=== PATIENT | female | born 1985 | race American Indian/Alaskan Native ===

== ENCOUNTER 2017-12-10 22:08 | Inpatient (IN) | payer BC ==
[2017-12-10] MEDS ORDERED: Lactated Ringer's 1,000 ML IV ONE (22:23)
[2017-12-10 22:26] VITALS: BMI 31.2
[2017-12-10 23:02] LABS: BASO # 0.1 K/uL (0.0-0.2); BASO % 0.6 % (0.0-2.0); EOS # 0.1 K/uL (0.0-0.7); EOS % 0.9 % (0.0-4.0); HEMOGLOBIN 10.3 g/dL (11.0-16.0); LYMPH # 1.4 K/uL (1.0-4.3); LYMPH % 15.1 % (20.0-40.0); MEAN CORPUSCULAR HEMOGLOBIN 23.7 pg (27.0-31.0); MEAN CORPUSCULAR HGB CONC 33.4 g/dL (33.0-37.0); MEAN PLATELET VOLUME 9.8 fL (7.2-11.7); MONO # 0.5 K/uL (0.0-0.8); MONO % 5.5 % (0.0-10.0); NEUT # 7.2 K/uL (1.8-7.0); NEUT % 77.9 % (50.0-75.0); NRBC % 0.1 % (0.0-2.0); RBC 4.32 Mil/uL (3.80-5.20); RED CELL DISTRIBUTION WIDTH 18.1 % (11.5-14.5); WHITE BLOOD COUNT 9.2 K/uL (4.8-10.8)
[2017-12-10] MEDS: Lactated Ringer's 1,000 ML IV SCH (23:06)
[2017-12-10 23:12] LABS: URINE BACTERIA OCC (<OCC); URINE BILIRUBIN NEGATIVE (NEGATIVE); URINE BLOOD NEGATIVE (NEGATIVE); URINE CLARITY Clear (Clear); URINE COLOR Straw (YELLOW); URINE GLUCOSE (UA) NORMAL (Normal); URINE LEUKOCYTE ESTERASE NEG Leu/uL (Negative); URINE PROTEIN NEGATIVE (NEGATIVE); URINE UROBILINOGEN NORMAL mg/dL (0.2-1.0)
[2017-12-10 23:18] LABS: ALB/GLOB RATIO 1.1 (1.0-2.1); ALBUMIN 3.9 g/dL (3.5-5.0); ALT/SGPT 16 U/L (9-52); AST/SGOT 39 U/L (14-36); BLOOD UREA NITROGEN 5 mg/dL (7-17); CALCIUM 9.1 mg/dl (8.6-10.4); GFR NON-AFRICAN AMERICAN > 60
--- NOTE | 2017-12-10 23:48 | OBADHP ---
Datetime: 12/10/2017 22:27 IP Chief Complaint Other: Abdominal tightening IP Adm Impression Other: Prolonged latent phase IP Admit Plan Other: Cervical ripening Admit Comment, IP Provider: 32 y.o. , LMP 03/07/17, LAI 12/12/17, EGA 39w 5d with occ abdominal tightness, stronger since last night. (+) AFM; denies LOF, VB. care: Dr. 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 Deines STIs PMH: denies PSH: 2007, wisdom teeth extraction x 4 (GA) NKDA Meds: PNV Soc Hx: denies tobacco, illicit drug or EtOH use. 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 Fam Hx: Mother alive 53 - hypothyroid. Father alive 69 - DM. Pat uncle - bladder CA P.E.: as above. Petite, in NAD. Awake, alert, oriented to time, person and place. 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 present Assessment: 32 y.o. P0, 39w 5d, prolonged latent phase of labor. GBS (-). Category 1 tracing. D/W Dr. Gutiérrez - admit for delivery; for cervical ripening. This was discussed with patient, who expresse d an understanding and agrees. No questions offered. Patient is clinically stable. Plan: 1) Admit 2) NPO 3) Admission labs 4) Continuous EFM 5) Cervidil 6) pain meds, upon request 7) Anticipate vaginal delivery -as per Dr. Gutiérrez Addendum: 2305 hours - cervidil placed in posterior vaginal vault. Pelvic Type - PN: Adequate Extremities - PN: Normal Abdomen - PN: Normal Back - PN: Normal Breast - PN: Normal Lungs - PN: Normal Heart - PN: Normal Thyroid - PN: Not Done Neurologic - PN: Normal HEENT - PN: Normal General - PN: Normal Weight - Estimated: 3065 Presentation-Admit: Vertex FHR - Baseline A Provider: 125 Membranes, Provider: Intact Contraction Comments Provider: irregular Comments, ACOG Physical Exam: Abdomen: Gravid. Soft. Non tender All other systems reviewed and are negative Gestation - Est Wks by US: 39w 5d IP Hx Assessment: The History has been Reviewed and is Current Vital Signs Provider: Reviewed IP Chief Complaint: Other NICHD Variability Prov Fetus A: Moderate 6-25bpm NICHD Accel Fetus A IP Provider: 15X15 FHR Category Provider Fetus A: Category I NICHD Decel Fetus A IP Provider: None Dilatation, Provider: 3 Effacement, Provider: 40 Station, Provider: -2 Genitourinary Exam: Normal DTRs - PN: Not Done EGA AdmitDate IP: 39.5 IP Adm Impression: Term, intrauterine ; No Active Labor IP Admit Plan: Admit to unit; Initiate labor protocol
[2017-12-11] MEDS ORDERED: Bupivacaine HCl/FentaNYL Cit 100 ML EPI ONE (04:33)
[2017-12-11] MEDS ORDERED: Oxytocin 30 UNIT 30 UNITS/500 ML BAG IV SCH (08:30)
[2017-12-11] MEDS: Lactated Ringer's 1,000 ML IV SCH (09:15)
--- NOTE | 2017-12-11 09:21 | OBPN ---
Datetime: 12/11/2017 09:17 IP Progress Impression: Normal progression of labor IP Progress Plan: Continue present management Membranes, Provider: Ruptured FHR - Baseline A Provider: 135 Gestation - Est Wks by US: 39.6 Presentation-Admit: Vertex IP Progress Note Comment: pt seen adn examiend reprots pain better contorlled afer epiudral +FM VSS EFM: Cat I TOCO: q 2-3 min VE: /-2 VTX AROM clear A/P @ 39.6 wks GA in active labor cont current mangmante Vital Signs Provider: Reviewed; Within Normal Limits FHR Category Provider Fetus A: Category I NICHD Variability Prov Fetus A: Moderate 6-25bpm Dilatation, Provider: 9 Effacement, Provider: 90 Station, Provider: -2 Datetime: 12/10/2017 22:27 Contraction Comments Provider: irregular Weight - Estimated: 3065 NICHD Accel Fetus A IP Provider: 15X15 NICHD Decel Fetus A IP Provider: None
[2017-12-11] MEDS ORDERED: Lidocaine 2% MPF (5 ml) Inj ONE (10:48)
--- NOTE | 2017-12-11 10:57 | OBPN ---
Datetime: 12/11/2017 10:54 IP Progress Impression: Normal progression of labor IP Informed Consent Obtain: Vaginal Delivery IP Progress Plan: Continue present management Membranes, Provider: Ruptured Amniotic Fluid Color, Provider: Clear FHR - Baseline A Provider: 125 Gestation - Est Wks by US: 39.6 Presentation-Admit: Vertex IP Progress Note Comment: pt seen adn examien dfor progressin of laobr s/p epidurl VSS VE: //-1 EMF: Cat I TOCO: q 5min A/P fully dilated strat pushing antipcate cont current magnent Vital Signs Provider: Reviewed; Within Normal Limits FHR Category Provider Fetus A: Category I NICHD Variability Prov Fetus A: Moderate 6-25bpm Dilatation, Provider: 10 Effacement, Provider: 100 Station, Provider: -1
[2017-12-11] MEDS ORDERED: Benzocaine/Menthol 20%-0.5% Topical Spray (60 ml) TOP PRN (12:34)
[2017-12-11] MEDS ORDERED: Oxycodone/Acetaminophen 5/325 mg Tab PO PRN ×2 (12:34)
--- NOTE | 2017-12-11 12:51 | OBDS ---
DELIVERY PERSONNEL Delivery Doctor: Tish Gutiérrez MD Agronomy Internship: Leeanna Kulkarni RN Anesthesiologist: Dr Swanson MATERNAL INFORMATION Delivery Anesthesia: Epidural Medications in Delivery: pitocin 20units Estimated Blood Loss (ml): 400 Placenta Cultured: No Maternal Complications: None Provider Comments: pt was fully dilated adn pushing. verbal cnsent for episotiomy, right mediolatera l episotimy performed. aturmatic, spontanoue dlievery of head, loose nuchal cord x 1 reduced. atruamt ic, sponteoua delivery of anterior followed yb poseiro shoulder followed by delivery of [place] body. bot h oral and nasal passags of the baby were bulb suctioned. umbicla cord clamped and cut. baby handed t o mother on abodmen with rn assistance. cord blood and cord gases collecotmy and sent x 2. Spotaneous delivery of intact placenta with membranes. fundus firm, at level of umbilicus. second degree perin ricardo laceratoin, and right mediolateral epsitomy noted adn repaierd wiht 2-0 and 3-0 chormic. good he mostais, no complicaiotns. live femlae ifnat agpars 8,9 weight of 6lbs 11 ounces ebl 400ml no complicaitns LABOR SUMMARY EDC: 12/12/2017 00:00 No. Babies in Womb: 1 Attempted: No Labor Anesthesia: Epidural LABOR INFORMATION Onset of Labor: 12/11/2017 07:11 Complete Dilatation: 12/11/2017 10:30 Cervical Ripening Agents: Cervidil (Annotations: 10 mg) Oxytocin: N/A Group B Beta Strep: Negative Steroids Given: None Reason Steroids Not Administered: Not Applicable MEMBRANES Membranes Rupture Method: Artificial Rupture of Membranes: 12/11/2017 07:07 Amniotic Fluid Color: Clear Amniotic Fluid Amount: Moderate Amniotic Fluid Odor: Normal STAGES OF LABOR Stage 1 hrs: 3 Stage 1 min: 19 VAGINAL DELIVERY Episiotomy: Right Mediolateral Laceration Extension: Second Degree IDENTIFICATION/MEDS BABY A ID Band Number: [id number] Sensor Number: [id number]
[2017-12-11] MEDS ORDERED: Lactated Ringer's 1,000 ML IV ONE (14:20)
[2017-12-12 08:30] LABS: BASO # 0.1 K/uL (0.0-0.2); BASO % 0.4 % (0.0-2.0); EOS # 0.2 K/uL (0.0-0.7); EOS % 1.1 % (0.0-4.0); LYMPH # 1.5 K/uL (1.0-4.3); LYMPH % 10.2 % (20.0-40.0); MEAN CELL VOLUME 70.4 fL (81.0-99.0); MEAN CORPUSCULAR HEMOGLOBIN 23.5 pg (27.0-31.0); MEAN CORPUSCULAR HGB CONC 33.4 g/dL (33.0-37.0); MEAN PLATELET VOLUME 9.5 fL (7.2-11.7); MONO # 0.7 K/uL (0.0-0.8); MONO % 4.9 % (0.0-10.0); NEUT # 12.6 K/uL (1.8-7.0); NEUT % 83.4 % (50.0-75.0); RBC 3.49 Mil/uL (3.80-5.20); RED CELL DISTRIBUTION WIDTH 17.9 % (11.5-14.5)
[2017-12-12 08:33] LABS: HEMOGLOBIN 8.2 g/dL (11.0-16.0); WHITE BLOOD COUNT 15.1 K/uL (4.8-10.8)
[2017-12-12] MEDS: Multiple Vitamins Tab PO SCH (09:45)
--- NOTE | 2017-12-12 18:20 | OBPPN ---
Datetime: 12/12/2017 18:18 PP Pain Prov: Within normal limits PP Nausea Prov: Denies PP Flatus Prov: Yes PP Breasts Prov: Normal PP Heart Prov: Normal PP Lungs Prov: Normal PP Abdomen/Uterus Prov: Normal PP Lochia Prov: Normal PP Vulva/Perineum Prov: Normal PP CVA Tenderness Prov: Normal PP Extremities Prov: Normal PP C/S Incision Prov: Not Applicable PP Progress Prov: Normal PP Impression Prov: Normal progression PP Plan Prov: Continue present management PP Progress Note Prov: pt seen adn examiend rpeorts pain contorlled with motirn. tp ambuiatn, boiidg n, passign flatus, toleratine reuglar diet without nause, vomitng, cp, sob, fever, hcills, pt breast feeding. pt denies any sadness or depression VSS PE GEN NAD AA ox 3 RESP CTAB?l CVS: RRR< +S1/S2 ABD: soft, NT/NT FUDNUS: Firm, at level of ubmicls, no uterien tendernses VE: minimal lochia non foul smelling, laceratio site healing well EX:T no calf tendere, negative homans sign A/ s/p PPD #1 doign well am lab pain mangment encoruage breast feedign adn ambatuion Vital Signs Provider PP: Reviewed
--- NOTE | 2017-12-12 18:22 | OBDCSUM ---
Datetime: 12/12/2017 18:19 Discharged to, Provider: Home Follow up at, Provider: Dr Gutiérrez Disch Instr Activity: Normal activity Disch Instr Diet: Regular Discharge Instructions, Provider: Routine instructions given Discharge Diagnosis, Provider: Term Delivered Discharge Time: 12/13/2017 11:00 Follow up in weeks, Provider: 6 weeks Disch Referrals: None Contraception discussed, Prov: Yes Disch Activity Restrictions: No sexual activity; Nothing in vagina - [place], tampons, douche Discharge Comment, Provider: dc in am Contraception after Delivery: Not Planning to Use
[2017-12-13 00:08] VITALS: RESP 20
[2017-12-13 07:40] VITALS: BP 108/68; PULSE 72; TEMP 98; O2SAT 97
[2017-12-13] MEDS: Multiple Vitamins Tab PO SCH (10:18)
== END 2017-12-13 14:10 | disposition home or self-care (01) | DRG 775 ==
LOC: C.EROB 22:08 → C.4D 22:23 → C.4M 12-11 13:40
PROVIDERS: ADMIT Obstetrics & Gynecology; ATTEND Obstetrics & Gynecology
PROC: 10E0XZZ Delivery of Products of Conception, External Approach (ICD-10-PCS; principal; 2017-12-11)
PROC: 0W8NXZZ Division of Female Perineum, External Approach (ICD-10-PCS; 2017-12-11)
PROC: 0KQM0ZZ Repair Perineum Muscle, Open Approach (ICD-10-PCS; 2017-12-11)
DX: O63.0 Prolonged first stage (of labor) (principal); Z37.0 Single live birth; O69.81X0 Labor and delivery complicated by cord around neck, without compression, not applicable or unspecified; O70.1 Second degree perineal laceration during delivery; Z3A.39 39 weeks gestation of pregnancy